=== PATIENT | female | born 1985 | race Two or more races ===

== ENCOUNTER 2018-12-31 11:47 | Emergency (ER) | payer SELFPAY ==
[~2018-12-31] VITALS: Ht 142.2 cm; Wt 54.0 kg
--- NOTE | 2018-12-31 11:50 | NUR ---
PT BIBRA 79 FROM [facility] C/O DIZZINESS, -LOC, PT IS AAOX4, NOT IN RESPIRATORY DISTRESS, V/S STABLE, KEPT RESTED AND COMFORTABLE, WILL CONTINUE TO MONITOR.
--- NOTE | 2018-12-31 12:14 | NUR ---
BOZENA NELSON AT BEDSIDE FOR EVAL.
--- NOTE | 2018-12-31 12:29 | NUR ---
PT IS WHEELED TO CT SCAN VIA [facility].
[2018-12-31] MEDS ORDERED: IV NS 0.9% 1,000 ML BAG IV ONE (12:30)
--- NOTE | 2018-12-31 12:50 | NUR ---
ER PHLEB AT BEDSIDE FOR BLOOD DRAW.
[2018-12-31 12:57] LABS: BASOPHILS # (AUTO) 0.1 /CMM (0.0-0.2); BASOPHILS % (AUTO) 2.2 % (0.0-2.0); HEMATOCRIT 37 % (33-45); HEMOGLOBIN 12.8 g/dL (11.5-14.8); LYMPHOCYTES # (AUTO) 1.7 /CMM (0.8-4.8); LYMPHOCYTES % (AUTO) 29.8 % (20.0-44.0); MEAN CORPUSCULAR HGB CONC 34 g/dl (31.0-36.0); MEAN CORPUSCULAR VOLUME 90 fL (82-100); MONOCYTES # (AUTO) 0.4 /CMM (0.1-1.30); MONOCYTES % (AUTO) 7.8 % (2.0-12.0); NEUTROPHILS # (AUTO) 3.3 /CMM (1.8-8.9); NEUTROPHILS % (AUTO) 58.2 % (43.0-81.0); PLATELET COUNT (AUTO) 191 /CMM (150-450); RED BLOOD CELL COUNT(AUTO) 4.16 MIL/uL (4.0-5.2); WHITE BLOOD COUNT (AUTO) 5.7 K/uL (4.3-11.0)
[2018-12-31 13:04] LABS: CALCIUM, SERUM 8.6 mg/dL (8.5-10.1); CREATININE 0.6 mg/dL (0.6-1.3); POTASSIUM 3.5 mmol/L (3.5-5.1)
[2018-12-31] MEDS ORDERED: IBUPROFEN 600 MG TABLET PO ONE ×2 (13:28→13:30)
--- NOTE | 2018-12-31 13:45 | NUR ---
IV removed. Catheter intact and site benign. Pressure and 4x4 applied to site. No bleeding noted. Patient discharged to home in stable condition. Written and verbal after care instructions given. Patient verbalizes understanding of instruction.
[2018-12-31 13:46] VITALS: BP 131/78
== END 2018-12-31 13:47 | disposition home or self-care (01) ==
LOC: ER 11:51
DX: R55 Syncope and collapse (principal); R42 Dizziness and giddiness; R51 Headache; F41.9 Anxiety disorder, unspecified; H55.09 Other forms of nystagmus; Z88.6 Allergy status to analgesic agent
CPT/HCPCS: 36415; 70450; 80048; 85025; 93005; 96360; 99284; A6403; J7030